=== PATIENT | female | born 1955 | race Two or more races ===

== ENCOUNTER 2022-11-06 11:14 | Emergency (ER) | payer OTHER ==
[~2022-11-06] VITALS: Ht 170.2 cm; Wt 77.1 kg
== END 2022-11-06 16:40 | disposition home or self-care (01) ==
LOC: ER 11:14
DX: S89.82XA Other specified injuries of left lower leg, initial encounter (principal); W18.39XA Other fall on same level, initial encounter; Y93.89 Activity, other specified; Y92.520 Airport as the place of occurrence of the external cause; I48.91 Unspecified atrial fibrillation; E03.9 Hypothyroidism, unspecified; I10 Essential (primary) hypertension; G40.89 Other seizures; Z88.2 Allergy status to sulfonamides; Z88.8 Allergy status to other drugs, medicaments and biological substances